=== PATIENT | male | born 1945 | race Caucasian/White ===

== ENCOUNTER 2024-01-14 15:13 | Emergency (ER) | payer OTHER ==
[~2024-01-14] VITALS: Ht 167.6 cm; Wt 88.0 kg
[2024-01-14 15:47] LABS: BASOPHILS ABSOLUTE AUTO 0.02 K/mm3 (0.00-0.23); BASOPHILS PERCENT AUTO 0 % (0-2); EOSINOPHILS ABSOLUTE AUTO 0.09 K/mm3 (0.00-0.68); EOSINOPHILS PERCENT AUTO 2 % (0-6); Hematocrit 35.3 % (37.0-53.0); Hemoglobin 12.6 g/dL (13.5-17.5); IMMATURE GRAN ABSOLUTE AUTO 0.01 K/mm3 (0.00-0.10); IMMATURE GRAN PERCENT AUTO 0 % (0-1); LYMPHOCYTES ABSOLUTE AUTO 1.34 K/mm3 (0.84-5.20); LYMPHOCYTES PERCENT AUTO 26 % (21-46); MONOCYTES ABSOLUTE AUTO 0.44 K/mm3 (0.16-1.47); MONOCYTES PERCENT AUTO 9 % (4-13); Mean Corpuscular HGB Conc 35.7 g/dL (31.5-36.5); Mean Corpuscular Volume 92 fL (80-100); Mean Platelet Volume 10.2 fL (9.1-12.4); NEUTROPHILS ABSOLUTE AUTO 3.26 K/mm3 (1.96-9.15); NEUTROPHILS PERCENT AUTO 63 % (41-73); Platelet Count 88 K/mm3 (150-400); RDW Coefficient Variation 14.9 % (11.7-14.2); RDW Standard Deviation 50.1 fL (35.1-46.3); Red Blood Cell Count 3.82 M/mm3 (4.30-5.90); White Blood Cell Count 5.16 K/mm3 (4.00-11.30)
[2024-01-14 16:05] LABS: Albumin, Blood 3.7 g/dL (3.4-5.0); Albumin/Globulin Ratio 1.4 (0.8-1.8); Bilirubin, Total 0.7 mg/dL (0.1-1.0); Calcium, Blood 8.7 mg/dL (8.5-10.1); Creatinine, Blood 1.07 mg/dL (0.60-1.20); Globulin, Blood 2.6 g/dL (2.2-4.0); Potassium, Blood 3.2 mmol/L (3.5-5.5); Total Protein, Blood 6.3 g/dL (6.4-8.2)
[2024-01-14 16:29] LABS: Magnesium, Blood 1.4 mg/dL (1.6-2.4)
[2024-01-14 16:31] LABS: Thyroid Stimulating Hormone 0.707 uIU/mL (0.360-4.800)
[2024-01-14] MEDS ORDERED: Potassium Chloride 20 MEQ TabCR PO ONE (17:00)
[2024-01-14] MEDS ORDERED: Magnesium Oxide 400 MG Tab PO ONE (17:00)
[2024-01-14] MEDS ORDERED: POTA20PAC PO (17:01)
[2024-01-14] MEDS ORDERED: MAGNESIUM OXID500 MG PO (17:01)
[2024-01-14 17:35] VITALS: BP 127/61
== END 2024-01-14 17:38 | disposition home or self-care (01) ==
LOC: ER 15:13
PROVIDERS: Emergency Medicine
DX: I49.3 Ventricular premature depolarization (principal); E87.6 Hypokalemia; E83.42 Hypomagnesemia; F43.10 Post-traumatic stress disorder, unspecified; E11.9 Type 2 diabetes mellitus without complications; K21.9 Gastro-esophageal reflux disease without esophagitis; E78.5 Hyperlipidemia, unspecified; G47.33 Obstructive sleep apnea (adult) (pediatric)
CPT/HCPCS: 71046; 80053; 83735; 84443; 85025; 93005; 93010; 99284-25; A9270